=== PATIENT | female | born 1960 | race African-American/Black ===

== ENCOUNTER 2021-11-12 15:20 | Emergency (ER) | payer OTHER ==
[2021-11-12 15:56] VITALS: TEMP 97.9; BMI 27.3
[2021-11-12 18:35] LABS: EOS % 1.6 % (0-4.5); HEMATOCRIT 45.5 % (32.4-45.2); HEMOGLOBIN 14.9 GM/dL (10.7-15.3); LYMPH % 34.5 % (8-40); MCH 27.5 pg (25.7-33.7); MCHC 32.7 g/dl (32.0-36.0); MEAN CELL VOLUME 84.2 fl (80-96); MEAN PLT VOLUME 8.6 fl (7.5-11.1); MONO % 6.8 % (3.8-10.2); NEUT % 56.1 % (42.8-82.8); PLATELET COUNT 343 10^3/uL (134-434); RDW 14.1 % (11.6-15.6); WHITE BLOOD COUNT 7.4 K/mm3 (4.0-10.0)
[2021-11-12 19:03] LABS: ALBUMIN 4.2 g/dl (3.4-5.0); BLOOD UREA NITROGEN 11.1 mg/dL (7-18)
[2021-11-12 19:05] LABS: CREATININE 0.8 mg/dL (0.55-1.3)
[2021-11-12 19:07] LABS: BILIRUBIN,TOTAL 0.6 mg/dL (0.2-1); TOT PROT 8.8 g/dl (6.4-8.2)
[2021-11-12 19:16] VITALS: BP 152/86; PULSE 86
== END 2021-11-12 19:37 | disposition home or self-care (01) ==
LOC: JER 15:20
DX: I10 Essential (primary) hypertension (principal)
CPT/HCPCS: 36415; 80053; 85025; 93005; 93010; 99284-25